=== PATIENT | female | born 2000 | race Two or more races ===

== ENCOUNTER 2022-04-17 04:53 | Inpatient (IN) ==
[2022-04-17 05:12] VITALS: BMI 25.4
[2022-04-17 05:21] LABS: BILIRUBIN,URINE NEGATIVE (NEGATIVE); BLOOD/HEMOGLOBIN,URINE 5+ (NEGATIVE); GLUCOSE, URINE NEGATIVE (NEGATIVE); KETONES,URINE NEGATIVE (NEGATIVE); LEUKOCYTE ESTERASE ,URINE 3+ (NEGATIVE); NITRITES,URINE NEGATIVE (NEGATIVE); PROTEIN,URINE 2+ (NEGATIVE); UROBILINOGEN,URINE NORMAL (NORMAL)
[2022-04-17 05:23] LABS: BASOPHILS # (AUTO) 0.1 X10^3/uL (0.0-0.1); BASOPHILS % (AUTO) 0.8 % (0.2-1.0); EOSINOPHILS # (AUTO) 0.1 x10^3/uL (0.0-0.2); EOSINOPHILS % (AUTO) 1.5 % (0.9-2.9); HEMATOCRIT 35.5 % (36.0-47.0); HEMOGLOBIN 12.4 g/dL (12.0-16.0); LYMPHOCYTES # (AUTO) 2.5 X10^3/uL (1.3-2.9); LYMPHOCYTES % (AUTO) 25.5 % (21.0-51.0); MEAN CORPUSCULAR HEMOGLOBIN 31.7 pg (27.0-34.0); MEAN CORPUSCULAR HGB CONC 34.8 g/dL (33.0-35.0); MEAN PLATELET VOLUME 8.1 fL (7.4-11.0); MONOCYTES # (AUTO) 0.8 x10^3/uL (0.3-0.8); NEUTROPHILS # (AUTO) 6.3 x10^3/uL (2.2-4.8); NEUTROPHILS % (AUTO) 64.2 % (42.0-75.0); RED CELL DISTRIBUTION WIDTH 13.4 % (11.6-16.5); WHITE BLOOD COUNT 9.8 X10^3/uL (3.6-10.0)
[2022-04-17 05:30] LABS: APPEARANCE,URINE SLIGHTLY HAZY (CLEAR); COLOR,URINE PINK (YELLOW)
[2022-04-17 05:31] LABS: BACTERIA,URINE 1+ /HPF (NEGATIVE); RBC,URINE 30-50 /HPF (0-3); SQUAMOUS EPITHELIAL CELL,UR FEW /HPF (NEGATIVE)
[2022-04-17 05:34] LABS: ALANINE AMINOTRANSFERASE 19 Units/L (12-78); ALBUMIN 2.6 g/dL (3.4-5.0); ALKALINE PHOSPHATASE 94 Units/L (45-150); ASPARTATE AMINO TRANSFERASE 23 Units/L (15-37); BLOOD UREA NITROGEN 10 mg/dL (7-18); CALCIUM 8.3 mg/dL (8.5-10.1); CARBON DIOXIDE 24.4 mmol/L (21-32); CHLORIDE 105 mmol/L (98-107); COR CA(FOR HYPOALB) 9.4 mg/dL (8.5-10.1); CREATININE 0.56 mg/dL (0.55-1.02); SODIUM 137 mmol/L (136-145); eGFR NON BLACK RACES > 60 (>60)
[2022-04-17] MEDS ORDERED: AMPICILLIN VIAL 2 GRAM ONE (06:04)
[2022-04-17] MEDS ORDERED: NS 100 ML IV 100 ML ONE (06:04)
[2022-04-17] MEDS ORDERED: PITOCIN IVP ONE (06:05)
[2022-04-17] MEDS ORDERED: LR 1,000 ML IV 1,000 ML IV ONE (06:13)
[2022-04-17] MEDS ORDERED: D5 1/2 NS 1,000 mL + PITOCIN 20 UNITS/L IV 20 UNITS/1,000 ML BAG IV ONE ×2 (06:13→10:48)
[2022-04-17 06:23] LABS: AMNISURE ROM TEST THERE IS A RUPTURE (NO RUPTURE)
[2022-04-17] MEDS ORDERED: STADOL INJ ONE (06:47)
[2022-04-17] MEDS ORDERED: D5 1/2 NS 1,000 ML 1,000 ML IV SCH (07:00)
[2022-04-17] MEDS ORDERED: AMPICILLIN VIAL 2 GRAM 2 G in NS 100 ML IV 100 ML IV NR (07:00)
[2022-04-17] MEDS ORDERED: PHENERGAN INJ 25 MG IM PRN (09:00)
[2022-04-17] MEDS ORDERED: MOTRIN TAB 800 MG PO PRN (09:00)
[2022-04-17] MEDS ORDERED: D5 1/2 NS 1,000 ML 1,000 ML with PITOCIN 20 UNITS IV SCH ×2 (09:00)
[2022-04-17] MEDS ORDERED: MOTRIN TAB 800 MG PO ONE (10:50)
[2022-04-17 12:37] VITALS: BP 100/58
== END 2022-04-17 14:55 | disposition home or self-care (01) | DRG 807 ==
LOC: ER 04:53 → LD 05:35
PROVIDERS: ADMIT Obstetrics & Gynecology Obstetrics; ATTEND Obstetrics & Gynecology Obstetrics
DX: Z20.822 Contact with and (suspected) exposure to COVID-19; O32.8XX0 Maternal care for other malpresentation of fetus, not applicable or unspecified; Z3A.33 33 weeks gestation of pregnancy; Z37.0 Single live birth; O60.14X0 Preterm labor third trimester with preterm delivery third trimester, not applicable or unspecified